=== PATIENT | female | born 1975 | race Hispanic/Latino ===

== ENCOUNTER 2017-03-19 01:15 | Emergency (ER) | payer OTHER, MEDICARE ==
[2017-03-19] MEDS ORDERED: LORAZEPAM 1 MG TABLET ONE (02:02)
== END 2017-03-19 02:33 | disposition home or self-care (01) ==
LOC: EDH 01:15
DX: F41.9 Anxiety disorder, unspecified (principal); E11.9 Type 2 diabetes mellitus without complications; E78.5 Hyperlipidemia, unspecified; I10 Essential (primary) hypertension; Z88.1 Allergy status to other antibiotic agents

== ENCOUNTER 2017-08-14 14:07 | Emergency (ER) | payer OTHER, MEDICARE | END 2017-08-14 15:32 | disposition home or self-care (01) | LOC: EDH 14:07 | DX: L03.317 Cellulitis of buttock (principal); E11.9 Type 2 diabetes mellitus without complications; Z98.84 Bariatric surgery status; Z88.1 Allergy status to other antibiotic agents ==

== ENCOUNTER 2018-02-20 18:52 | Emergency (ER) | payer OTHER, MEDICARE | END 2018-02-20 20:55 | disposition home or self-care (01) | LOC: EDH 18:52 | DX: J06.9 Acute upper respiratory infection, unspecified (principal); J32.9 Chronic sinusitis, unspecified; Z88.1 Allergy status to other antibiotic agents; Z90.49 Acquired absence of other specified parts of digestive tract; Z98.890 Other specified postprocedural states | CPT/HCPCS: 87804 ==

== ENCOUNTER 2018-05-02 17:02 | Emergency (ER) | payer OTHER, MEDICARE ==
[2018-05-02] MEDS ORDERED: IBUPROFEN 600 MG TABLET ONE (17:50)
== END 2018-05-02 17:56 | disposition home or self-care (01) ==
LOC: EDH 17:02
DX: H10.9 Unspecified conjunctivitis (principal); E11.9 Type 2 diabetes mellitus without complications; E78.5 Hyperlipidemia, unspecified; I10 Essential (primary) hypertension; Z90.49 Acquired absence of other specified parts of digestive tract; Z98.84 Bariatric surgery status; Z88.1 Allergy status to other antibiotic agents

== ENCOUNTER 2018-06-17 20:02 | Emergency (ER) | payer MEDICARE, OTHER ==
[2018-06-17 20:26] LABS: APPEARANCE,URINE Clear (CLEAR); BILIRUBIN,URINE Negative (NEGATIVE); COLOR,URINE Dark Yellow (YELLOW); GLUCOSE, URINE (UA) Negative (NEGATIVE); KETONES,URINE Negative (NEGATIVE); LEUKOCYTE ESTERASE ,URINE Small (NEGATIVE); NITRATE,URINE Positive (NEGATIVE); OCCULT BLOOD,URINE Negative (NEGATIVE); PROTEIN,URINE Trace mg/dL (NEGATIVE)
[2018-06-17 20:32] LABS: HCG,QUAL RESULT NEGATIVE (NEGATIVE)
[2018-06-17 20:40] LABS: BACTERIA,URINE Rare /HPF (None Seen); RBC,URINE 0-1 /HPF (0-1); SQUAMOUS EPITHELIAL CELL,UR Few /HPF (0-2)
[2018-06-17 20:46] LABS: CREATININE 0.7 mg/dL (0.5-1.5); POTASSIUM 4.4 mmol/L (3.5-5.1)
[2018-06-17 20:51] LABS: ALBUMIN 3.7 g/dL (3.5-5.0); BILIRUBIN,TOTAL 0.4 mg/dL (0.2-1.0); TOTAL PROTEIN, SERUM 8.2 g/dL (6.0-8.3)
[2018-06-17 21:07] LABS: EOSINOPHILS % (AUTO) 5.3 % (0.0-8.0); HEMATOCRIT 30.4 % (36-48); LYMPHOCYTES % (AUTO) 25.6 % (21.0-51.0); MEAN CORPUSCULAR HGB CONC 33.6 g/dL (32.0-36.0); MEAN CORPUSCULAR VOLUME 74.3 fL (79-99); MONOCYTES % (AUTO) 5.8 % (3.0-13.0); NEUTROPHILS % (AUTO) 62.3 % (40.0-77.0); PLATELET COUNT (AUTO) 171 K/uL (130-400); RED BLOOD CELL COUNT(AUTO) 4.09 MIL/uL (4.00-5.50); RED CELL DISTRIBUTION WIDTH 18.8 % (11.0-15.5); WHITE BLOOD COUNT (AUTO) 5.5 K/uL (4.8-10.8)
[2018-06-17] MEDS ORDERED: LIDOCAINE HCL 1% 20 ML VIAL ONE (21:56)
[2018-06-17] MEDS ORDERED: DiphenhydrAMINE HCL 50 MG/ML VIAL ONE (22:26)
[2018-06-17] MEDS ORDERED: MORPHINE SULFATE 4 MG/1ML SYG ONE (22:27)
[2018-06-17] MEDS ORDERED: ONDANSETRON HCL 4 MG/2 ML VIAL ONE (22:27)
[2018-06-18] MEDS ORDERED: HYDROCODONE/ACETAMINOPHEN 5/325 MG TAB ONE (00:34)
[2018-06-18] MEDS ORDERED: CEFTRIAXONE SODIUM 1 GM ONE (00:34)
[2018-06-18] MEDS ORDERED: SULFAMETHOX-TMP DS 800/160 TAB ONE (00:34)
== END 2018-06-18 01:10 | disposition home or self-care (01) ==
LOC: EDH 20:02
DX: L02.01 Cutaneous abscess of face (principal); N73.2 Unspecified parametritis and pelvic cellulitis; E11.9 Type 2 diabetes mellitus without complications; I10 Essential (primary) hypertension; E78.5 Hyperlipidemia, unspecified; Z88.1 Allergy status to other antibiotic agents; Z90.49 Acquired absence of other specified parts of digestive tract; Z98.890 Other specified postprocedural states
CPT/HCPCS: 10060; 36415; 80053; 81001; 81025; 82948; 85025; 96374; 96375; 99284; J0696; J1200; J2270; J2405

== ENCOUNTER 2018-07-24 17:16 | Emergency (ER) | payer OTHER ==
[2018-07-24] MEDS ORDERED: IBUPROFEN 600 MG TABLET ONE (17:28)
== END 2018-07-24 18:21 | disposition home or self-care (01) ==
LOC: EDH 17:16
DX: S63.681A Other sprain of right thumb, initial encounter (principal); E11.9 Type 2 diabetes mellitus without complications; E78.5 Hyperlipidemia, unspecified; I10 Essential (primary) hypertension; Z98.84 Bariatric surgery status; Z88.1 Allergy status to other antibiotic agents; X50.0XXA Overexertion from strenuous movement or load, initial encounter; Y93.89 Activity, other specified; Y92.89 Other specified places as the place of occurrence of the external cause; Y99.8 Other external cause status
CPT/HCPCS: 73130

== ENCOUNTER 2018-10-07 08:45 | Emergency (ER) | payer OTHER ==
[2018-10-07] MEDS ORDERED: IBUPROFEN 600 MG TABLET ONE (09:31)
== END 2018-10-07 09:40 | disposition home or self-care (01) ==
LOC: EDH 08:45
DX: S60.221A Contusion of right hand, initial encounter (principal); E11.9 Type 2 diabetes mellitus without complications; E78.5 Hyperlipidemia, unspecified; I10 Essential (primary) hypertension; Z98.890 Other specified postprocedural states; Z88.1 Allergy status to other antibiotic agents; W01.0XXA Fall on same level from slipping, tripping and stumbling without subsequent striking against object, initial encounter; Y93.01 Activity, walking, marching and hiking; Y92.098 Other place in other non-institutional residence as the place of occurrence of the external cause; Y99.8 Other external cause status
CPT/HCPCS: 29125; 73130

== ENCOUNTER 2019-03-03 17:17 | Emergency (ER) | payer OTHER ==
[2019-03-03] MEDS ORDERED: METOCLOPRAMIDE 10 MG/2 ML VIAL ONE (19:17)
[2019-03-03] MEDS ORDERED: DiphenhydrAMINE HCL 50 MG/ML VIAL ONE (19:17)
[2019-03-03] MEDS ORDERED: KETOROLAC TROMETHAMINE 15MG/ML ONE (19:17)
[2019-03-03] MEDS ORDERED: ONDANSETRON HCL 4 MG/2 ML VIAL ONE (19:17)
[2019-03-03] MEDS ORDERED: SODIUM CHLORIDE 0.9% 1000ML 1,000 ML IV ONE (19:21)
[2019-03-03] MEDS ORDERED: LORAZEPAM 2 MG/ML 1 ML VIAL ONE (19:47)
== END 2019-03-03 20:29 | disposition home or self-care (01) ==
LOC: EDH 17:17
DX: G43.909 Migraine, unspecified, not intractable, without status migrainosus (principal); R11.2 Nausea with vomiting, unspecified; E11.9 Type 2 diabetes mellitus without complications; I10 Essential (primary) hypertension; Z98.890 Other specified postprocedural states; Z88.1 Allergy status to other antibiotic agents; Z72.0 Tobacco use; Z98.84 Bariatric surgery status
CPT/HCPCS: 96361; 96374; 96375; 99284; J1200; J1885; J2060; J2405; J2765; J7030

== ENCOUNTER 2019-05-26 20:56 | Emergency (ER) | payer MEDICAID ==
[2019-05-26] MEDS ORDERED: ACETAMINOPHEN EXTRA STRENGTH 500 MG TABLET ONE (21:34)
== END 2019-05-26 21:56 | disposition home or self-care (01) ==
LOC: EDH 20:56
DX: H66.91 Otitis media, unspecified, right ear (principal); I10 Essential (primary) hypertension; E11.9 Type 2 diabetes mellitus without complications; Z88.1 Allergy status to other antibiotic agents; Z98.890 Other specified postprocedural states

== ENCOUNTER 2019-06-27 15:45 | Emergency (ER) | payer MEDICAID | END 2019-06-27 16:45 | disposition home or self-care (01) | LOC: EDH 15:45 | DX: L02.414 Cutaneous abscess of left upper limb (principal); I10 Essential (primary) hypertension; E11.9 Type 2 diabetes mellitus without complications; Z98.890 Other specified postprocedural states; Z90.49 Acquired absence of other specified parts of digestive tract; Z88.8 Allergy status to other drugs, medicaments and biological substances; Z88.0 Allergy status to penicillin | CPT/HCPCS: 10060 ==

== ENCOUNTER 2019-09-15 20:24 | Emergency (ER) | payer MEDICAID ==
[2019-09-15] MEDS ORDERED: METHYLPREDNISOLONE SOD SUCC 40MG/ML 1ML ONE (20:45)
[2019-09-15] MEDS ORDERED: DiphenhydrAMINE HCL 50 MG/ML VIAL ONE (20:46)
[2019-09-15] MEDS ORDERED: FAMOTIDINE/PF 20 MG/2 ML VIAL IV ONE (20:47)
[2019-09-15] MEDS ORDERED: KETOROLAC TROMETHAMINE 30MG/ML ONE (20:57)
[2019-09-15] MEDS ORDERED: CLINDAMYCIN 600 MG/D5% WATER 50 ML IV ONE (21:09)
== END 2019-09-15 22:13 | disposition home or self-care (01) ==
LOC: EDH 20:24
DX: R21 Rash and other nonspecific skin eruption (principal)
CPT/HCPCS: 96365; 96375 ×2; 99284; J1200; J1885; J2920; J3490 ×2; 96374

== ENCOUNTER 2019-09-17 13:33 | Inpatient (IN) | payer MEDICARE ==
[~2019-09-17] VITALS: Ht 157.5 cm; Wt 77.1 kg
[2019-09-17] MEDS ORDERED: ONDANSETRON HCL 4 MG/2 ML VIAL ONE ×2 (14:12→21:53)
[2019-09-17] MEDS ORDERED: MORPHINE SULFATE 4 MG/1ML SYG ONE ×3 (14:12→21:39)
[2019-09-17] MEDS ORDERED: IOHEXOL 350 MG/ML 100ML INFUS..BTL IV ONE (14:17)
[2019-09-17 14:19] LABS: BASOPHILS % (AUTO) 0.6 % (0.0-5.0); EOSINOPHILS % (AUTO) 1.6 % (0.0-8.0); HEMATOCRIT 31.5 % (36-48); LYMPHOCYTES % (AUTO) 18.9 % (21.0-51.0); MEAN CORPUSCULAR HEMOGLOBIN 28.2 pg (27.0-33.0); MEAN CORPUSCULAR VOLUME 85.4 fL (79-99); MONOCYTES % (AUTO) 6.2 % (3.0-13.0); NEUTROPHILS % (AUTO) 72.3 % (40.0-77.0); PLATELET COUNT (AUTO) 337 K/uL (130-400); RED BLOOD CELL COUNT(AUTO) 3.69 MIL/uL (4.00-5.50); RED CELL DISTRIBUTION WIDTH 13.1 % (11.0-15.5); WHITE BLOOD COUNT (AUTO) 7.1 K/uL (4.8-10.8)
[2019-09-17 14:25] LABS: APPEARANCE,URINE Clear (CLEAR); BILIRUBIN,URINE Negative (NEGATIVE); COLOR,URINE Yellow (YELLOW); GLUCOSE, URINE (UA) Negative (NEGATIVE); KETONES,URINE Negative (NEGATIVE); LEUKOCYTE ESTERASE ,URINE Trace (NEGATIVE); NITRATE,URINE Negative (NEGATIVE); OCCULT BLOOD,URINE Nonhemolyzed Trace (NEGATIVE); PH,URINE 6.5 (5.0-8.0); PROTEIN,URINE Negative (NEGATIVE)
[2019-09-17 14:35] LABS: HCG,QUAL RESULT NEGATIVE (NEGATIVE)
[2019-09-17 14:42] LABS: BACTERIA,URINE Rare /HPF (None Seen); SQUAMOUS EPITHELIAL CELL,UR Few /HPF (0-2)
[2019-09-17 14:47] LABS: INR 0.97 (0.85-1.15); PARTIAL THROMBOPLASTIN TIME 26.8 SEC (26.3-35.5); PROTHROMBIN TIME 10.5 SEC (9.6-11.6)
[2019-09-17 14:48] LABS: ALANINE AMINOTRANSFERASE 22 U/L (12-78); ASPARTATE AMINOTRANSFERASE 14 U/L (10-37); BILIRUBIN,TOTAL 0.3 mg/dL (0.2-1.0); CARBON DIOXIDE 28 mmol/L (21-32); CHLORIDE 103 mmol/L (101-111); CREATINE KINASE, TOTAL 56 U/L (21-232); CREATININE 0.7 mg/dL (0.5-1.5); GLOMERULAR FILTR. RATE CALC 98 mL/min (>60); GLUCOSE,RANDOM 93 mg/dL (70-105); MYOGLOBIN 23 ng/mL (10-92); POTASSIUM 4.1 mmol/L (3.5-5.1); SODIUM SERUM 139 mmol/L (136-145); TOTAL PROTEIN, SERUM 7.7 g/dL (6.0-8.3); TROPONIN I < 0.04 ng/mL (0.00-0.06); UREA NITROGEN, BLOOD 12 mg/dL (7-18)
[2019-09-17] MEDS ORDERED: ZOSYN 3.375GM+NS 50ML 50 ML IV ONE (16:36)
[2019-09-17] MEDS ORDERED: CLINDAMYCIN 600 MG/D5% WATER 50 ML IV ONE (16:36)
[2019-09-17] MEDS: SODIUM CHLORIDE 0.9% 1000ML 1,000 ML IV SCH (18:57)
[2019-09-17] MEDS: METRONIDAZOLE 500MG/100ML BAG 100 ML IV SCH (19:00)
[2019-09-17] MEDS ORDERED: ACETAMINOPHEN 325 MG TAB PO PRN ×2 (19:00)
[2019-09-17] MEDS: INSULIN HUMULIN R 100 UNIT/ML 3ML SQ SCH (21:00)
[2019-09-17] MEDS: ZOSYN 3.375GM+NS 50ML 50 ML IV SCH (21:00)
[2019-09-17] MEDS ORDERED: METRONIDAZOLE 500MG/100ML BAG 100 ML ONE (21:28)
[2019-09-17] MEDS ORDERED: SODIUM CHLORIDE 0.9% 1000ML 1,000 ML IV ONE (21:29)
[2019-09-17] MEDS ORDERED: HYDROMORPHONE HCL 0.5 MG/0.5 ML ML ONE (21:41)
[2019-09-18] MEDS ORDERED: ZOSYN 3.375GM+NS 50ML 50 ML IV ONE (00:16)
[2019-09-18] MEDS ORDERED: HYDROCODONE/ACETAMINOPHEN 5/325 MG TAB ONE (00:17)
[2019-09-18] MEDS: SODIUM CHLORIDE 0.9% 1000ML 1,000 ML IV SCH ×4 (01:37→21:37)
[2019-09-18 02:27] VITALS: BP 121/67
[2019-09-18] MEDS ORDERED: DEXTROSE 50%-WATER 50 ML DISP.SYRIN IV ONE (03:02)
[2019-09-18] MEDS ORDERED: DEXTROSE 50%-WATER 50 ML DISP.SYRIN IV PRN (03:15)
[2019-09-18] MEDS ORDERED: GLUCAGON 1MG KIT 1 MG ML IM PRN (03:15)
[2019-09-18] MEDS ORDERED: HYDROMORPHONE HCL 0.5 MG/0.5 ML ML ONE (03:15)
[2019-09-18] MEDS: METRONIDAZOLE 500MG/100ML BAG 100 ML IV SCH ×3 (03:19→20:18)
[2019-09-18] MEDS: ONDANSETRON HCL 4 MG/2 ML VIAL IV PRN ×2 (03:19→16:11)
[2019-09-18] MEDS ORDERED: ALPR0.5T8 PO (03:28)
[2019-09-18] MEDS ORDERED: GABA300C PO (03:28)
[2019-09-18] MEDS ORDERED: LISI-613 PO (03:30)
[2019-09-18] MEDS ORDERED: GLIP1TAB5 PO (03:33)
[2019-09-18] MEDS: ZOSYN 3.375GM+NS 50ML 50 ML IV SCH ×3 (06:24→20:18)
[2019-09-18] MEDS: INSULIN HUMULIN R 100 UNIT/ML 3ML SQ SCH ×4 (06:38→20:26)
[2019-09-18 07:49] LABS: HEMATOCRIT 28.4 % (36-48); MEAN CORPUSCULAR HEMOGLOBIN 28.2 pg (27.0-33.0); MEAN CORPUSCULAR HGB CONC 32.7 g/dL (32.0-36.0); MEAN CORPUSCULAR VOLUME 86.1 fL (79-99); RED BLOOD CELL COUNT(AUTO) 3.3 MIL/uL (4.00-5.50); RED CELL DISTRIBUTION WIDTH 13.2 % (11.0-15.5); WHITE BLOOD COUNT (AUTO) 5.5 K/uL (4.8-10.8)
[2019-09-18 08:00] VITALS: BP 115/77
[2019-09-18 08:01] LABS: CREATININE 0.7 mg/dL (0.5-1.5); POTASSIUM 4.1 mmol/L (3.5-5.1)
[2019-09-18 09:30] LABS: INR 0.98 (0.85-1.15); PROTHROMBIN TIME 10.6 SEC (9.6-11.6)
[2019-09-18] MEDS: HYDROMORPHONE 1 MG/1 ML AMP IV PRN ×2 (09:32→15:25)
[2019-09-18 12:00] VITALS: BP 123/85
--- NOTE | 2019-09-18 13:02 | NUR ---
DCP CM unable to meet w/pt, called spouse on facesheet, spoke to Tl Rolando , discussed dc plans. Pt is independent prior to admission, lives at home with spouse. Denies any other equipments/services. Uses [facility] for meds. Feels safe to go back home, still drives, spouse able to assist with transportation and needs as necessary. DC plan to home once stable. CM to cont to follow up. Addendum: 09/18/19 at 1304 by GLADYS SULLIVAN LVN CM Amended: Links added.
--- NOTE | 2019-09-18 13:39 | NUR ---
U/S GUIDED ASPIRATION OF SUPRAPUBIC ABDOMINAL WALL ABSCESS PROCEDURE PERFORMED BY DR. NAVA. PUNCTURE SITE SUPRAPUBIC REGION AND PATIENT TOLERATED PROCEDURE WELL. TOTAL REMOVED 80 MILLILITERS OF SEROSANGUINEOUS. END OF PROCEDURE AT 1350. CATHETER REMOVED AND DRESSING APPLIED. NO BLEEDING NOTED. REPORT GIVEN TO KELIN DIEHL AND PATIENT TRANSPORTED TO 315 VIA W/C. PT STABLE, AAO X 3 WITH NO C/O PAIN.
[2019-09-18 15:25] LABS: APPEARANCE BODY FLUID BLOODY (CLEAR); SPECIMENTYPE,BODY FLUID ASPIRATE
[2019-09-18 15:26] LABS: BODY FLUID WBC 15685 /cu. mm.; COLOR,BODY FLUID ORANGE (LT YELLOW); TOTAL VOLUME,BODY FLUID 80 mL
[2019-09-18 15:27] LABS: BODY FLUID RBC 9250 /cu. mm.
[2019-09-18 15:47] LABS: BF LYMPHOCYTE 1 %; BF MONOCYTE 2 %
[2019-09-18 16:00] VITALS: BP 129/83
[2019-09-18] MEDS ORDERED: HONEY 1 APPL/ML TUBE TP SCH (17:00)
[2019-09-18] MEDS: HYDROCODONE/ACETAMINOPHEN 5/325 MG TAB PO PRN (20:19)
[2019-09-18 20:32] VITALS: BP 96/69
[2019-09-19] VITALS (7 sets, daily range): BP systolic 106–156; BP diastolic 56–89
[2019-09-19] MEDS: SODIUM CHLORIDE 0.9% 1000ML 1,000 ML IV SCH ×3 (02:04→18:17)
[2019-09-19] MEDS: HYDROCODONE/ACETAMINOPHEN 5/325 MG TAB PO PRN (02:12)
--- NOTE | 2019-09-19 02:12 | NUR ---
PAIN Medicated with Hydrocodone for c/o abdominal pain.
--- NOTE | 2019-09-19 03:12 | NUR ---
MED EFFECT Pt resting quietly,respirations even and unlabored.
[2019-09-19] MEDS: METRONIDAZOLE 500MG/100ML BAG 100 ML IV SCH ×3 (03:45→18:57)
[2019-09-19] MEDS: ZOSYN 3.375GM+NS 50ML 50 ML IV SCH ×3 (05:12→20:51)
[2019-09-19] MEDS: HYDROMORPHONE 1 MG/1 ML AMP IV PRN ×2 (05:18→23:21)
[2019-09-19] MEDS: INSULIN HUMULIN R 100 UNIT/ML 3ML SQ SCH ×4 (05:26→20:57)
[2019-09-19] MEDS: HONEY 1 APPL/ML TUBE TP SCH (11:00)
--- NOTE | 2019-09-19 11:30 | NUR ---
DR CRUMP here new orders given
--- NOTE | 2019-09-19 12:30 | NUR ---
DR BUENROSTRO here to see pt ,assessed pt and treatment and instructed pt to follow up after discharge no new orders given
--- NOTE | 2019-09-19 13:35 | NUR ---
RD NOTIFICATION Pt admitted with abdominal cellulitis/abscess. Pt also had sores in mouth d/t reaction to medication. Pt interview via phone. Pt reports improved PO/appetite, mouth sores healing. Pt requests snacks TID. Tolerating 75gm CCD. Wants to avoid spicy foods. Recommend continue 75gm CCD. Diet preferences updated. RD to continue to monitor. Please notify as additional nutrition concerns arise. Thank you.
[2019-09-19] MEDS: ZYVOX 600 MG TAB PO SCH (15:41)
[2019-09-20] VITALS (7 sets, daily range): BP systolic 133–148; BP diastolic 62–93
[2019-09-20] MEDS: ZYVOX 600 MG TAB PO SCH ×2 (02:36→14:13)
[2019-09-20] MEDS: METRONIDAZOLE 500MG/100ML BAG 100 ML IV SCH ×3 (02:36→18:46)
[2019-09-20] MEDS: SODIUM CHLORIDE 0.9% 1000ML 1,000 ML IV SCH ×4 (02:37→22:24)
[2019-09-20] MEDS: ZOSYN 3.375GM+NS 50ML 50 ML IV SCH ×3 (04:43→22:24)
[2019-09-20] MEDS: INSULIN HUMULIN R 100 UNIT/ML 3ML SQ SCH ×4 (05:19→21:00)
[2019-09-20 05:35] LABS: BASOPHILS % (AUTO) 0.2 % (0.0-5.0); EOSINOPHILS % (AUTO) 3.8 % (0.0-8.0); HEMATOCRIT 29.3 % (36-48); LYMPHOCYTES % (AUTO) 25.9 % (21.0-51.0); MEAN CORPUSCULAR HEMOGLOBIN 28.2 pg (27.0-33.0); MEAN CORPUSCULAR HGB CONC 32.8 g/dL (32.0-36.0); MEAN CORPUSCULAR VOLUME 86.2 fL (79-99); NEUTROPHILS % (AUTO) 63.9 % (40.0-77.0); PLATELET COUNT (AUTO) 265 K/uL (130-400); RED CELL DISTRIBUTION WIDTH 12.8 % (11.0-15.5); WHITE BLOOD COUNT (AUTO) 5.3 K/uL (4.8-10.8)
[2019-09-20 05:48] LABS: ALBUMIN 2.5 g/dL (3.5-5.0); BILIRUBIN,TOTAL 0.3 mg/dL (0.2-1.0); CREATININE 0.6 mg/dL (0.5-1.5); POTASSIUM 3.5 mmol/L (3.5-5.1); TOTAL PROTEIN, SERUM 6.5 g/dL (6.0-8.3)
[2019-09-20 08:42] LABS: HEMOGLOBIN A1C 5.9 % (4.0-6.0)
[2019-09-20] MEDS: HONEY 1 APPL/ML TUBE TP SCH (11:13)
[2019-09-20] MEDS: HYDROCODONE/ACETAMINOPHEN 5/325 MG TAB PO PRN (22:36)
--- NOTE | 2019-09-20 23:12 | NUR ---
patient complained few minutes ago after administration of zosyn iv of itchiness redness more in the cheeks and slight swelling of lips. called information technology director for hospitalist You, he said he will orderordered solumedrol x 1 dose iv and benadryl PO prn q 6. vital signs are as follow 140/80 69 hr t 97.9 F, RR 17
[2019-09-20] MEDS ORDERED: DIPHENHYDRAMINE HCL 25 MG CAPSULE PO PRN (23:15)
[2019-09-20] MEDS ORDERED: METHYLPREDNISOLONE SOD SUCC 125MG/2ML VIAL IVP SCH (23:15)
[2019-09-20] MEDS ORDERED: METHYLPREDNISOLONE SOD SUCC 125MG/2ML VIAL ONE (23:19)
[2019-09-20] MEDS ORDERED: DIPHENHYDRAMINE HCL 25 MG CAPSULE ONE (23:19)
--- NOTE | 2019-09-20 23:30 | NUR ---
ADMINISTERED SOLUMEDROL 125 MG STAT AND BENADRYL PO. PT DENIED ANY DYPSNEA NOR CHEST PAIN. 0015 PT VERBALIZED ITCHINESS LESSENED, AND REDNESS SUBSIDED. CLOSE MONITORING. WALT POLANCO FOR NOW PER KLARISSA LIFE TEACHER CRYOGENICS ENGINEER FOR HOSPITALIST ORDER.
[2019-09-21] MEDS: ZYVOX 600 MG TAB PO SCH ×2 (03:23→14:29)
[2019-09-21 03:30] VITALS: BP 132/84
[2019-09-21] MEDS: SODIUM CHLORIDE 0.9% 1000ML 1,000 ML IV SCH (03:30)
[2019-09-21] MEDS: METRONIDAZOLE 500MG/100ML BAG 100 ML IV SCH ×2 (03:30→12:02)
[2019-09-21] MEDS: HYDROMORPHONE 1 MG/1 ML AMP IV PRN (04:17)
[2019-09-21 06:26] LABS: BASOPHILS % (AUTO) 0.1 % (0.0-5.0); HEMATOCRIT 32.4 % (36-48); MEAN CORPUSCULAR HEMOGLOBIN 27.7 pg (27.0-33.0); MEAN CORPUSCULAR VOLUME 83.9 fL (79-99); MONOCYTES % (AUTO) 0.5 % (3.0-13.0); PLATELET COUNT (AUTO) 299 K/uL (130-400); RED BLOOD CELL COUNT(AUTO) 3.86 MIL/uL (4.00-5.50); RED CELL DISTRIBUTION WIDTH 12.9 % (11.0-15.5); WHITE BLOOD COUNT (AUTO) 7.7 K/uL (4.8-10.8)
[2019-09-21 06:46] LABS: BILIRUBIN,TOTAL 0.3 mg/dL (0.2-1.0); CREATININE 0.7 mg/dL (0.5-1.5); TOTAL PROTEIN, SERUM 7.7 g/dL (6.0-8.3)
[2019-09-21] MEDS: INSULIN HUMULIN R 100 UNIT/ML 3ML SQ SCH ×2 (07:00→12:05)
--- NOTE | 2019-09-21 07:00 | NUR ---
Sent message to MD oWodard to call back regarding patient's result of body fluid culture, and zosyn reaction. pending for call back
[2019-09-21 08:00] VITALS: BP 125/98
[2019-09-21] MEDS: HONEY 1 APPL/ML TUBE TP SCH (09:00)
[2019-09-21 12:00] VITALS: BP 123/96
== END 2019-09-21 16:15 | disposition home or self-care (01) | DRG 862 ==
LOC: EDH 13:33 → EEVIPCON 13:33 → EDHIP 13:34 → 3CH 09-18 02:39
PROVIDERS: ADMIT Internal Medicine; ATTEND Internal Medicine
PROC: 0W9F3ZZ Drainage of Abdominal Wall, Percutaneous Approach (ICD-10-PCS; principal; 2019-09-18)
DX: T81.41XA Infection following a procedure, superficial incisional surgical site, initial encounter (principal); K65.1 Peritoneal abscess; L02.211 Cutaneous abscess of abdominal wall; L03.311 Cellulitis of abdominal wall; Y83.8 Other surgical procedures as the cause of abnormal reaction of the patient, or of later complication, without mention of misadventure at the time of the procedure; E11.9 Type 2 diabetes mellitus without complications; I10 Essential (primary) hypertension; N73.9 Female pelvic inflammatory disease, unspecified; B95.62 Methicillin resistant Staphylococcus aureus infection as the cause of diseases classified elsewhere; E66.01 Morbid (severe) obesity due to excess calories; M54.30 Sciatica, unspecified side; Z98.84 Bariatric surgery status; Z68.31 Body mass index [BMI] 31.0-31.9, adult; Z83.3 Family history of diabetes mellitus; Z82.49 Family history of ischemic heart disease and other diseases of the circulatory system; Z90.710 Acquired absence of both cervix and uterus; Z98.891 History of uterine scar from previous surgery; Z88.1 Allergy status to other antibiotic agents; Z86.14 Personal history of Methicillin resistant Staphylococcus aureus infection; Y92.89 Other specified places as the place of occurrence of the external cause
CPT/HCPCS: 10005; 36415; 71045; 74177; 76705; 76942; 80048; 80053; 81001; 81025; 82550; 82948; 83036; 83605; 83874; 84145; 84484; 85025; 85027; 85610; 85730; 86900; 86901; 87040; 87071; 87077; 87088; 87186; 87205; 89051; 93005; G0378; J1170; J1815; J2270; J2405; J2543; J2930; J3490; J7030; J7070; Q0163; Q9967

== ENCOUNTER 2020-02-11 17:10 | Emergency (ER) | payer MEDICARE ==
[~2020-02-11 17:10] MED LIST: ALPR0.5T8 PO; GABA300C PO; GLIP1TAB5 PO; LISI-613 PO
[2020-02-11] MEDS ORDERED: ALBUTEROL INHALER 90MCG/INH IH ONE (17:47)
[2020-02-11] MEDS ORDERED: ACETAMINOPHEN-CODEINE 300/30MG TAB ONE (17:47)
[2020-02-11 18:16] LABS: RAPID GROUP A STREP NEGATIVE (NEGATIVE)
== END 2020-02-11 19:00 | disposition home or self-care (01) ==
LOC: EDH 17:10
DX: B34.9 Viral infection, unspecified (principal); Z20.828 Contact with and (suspected) exposure to other viral communicable diseases; E11.9 Type 2 diabetes mellitus without complications; I10 Essential (primary) hypertension; Z88.1 Allergy status to other antibiotic agents; Z98.890 Other specified postprocedural states; Z90.710 Acquired absence of both cervix and uterus
CPT/HCPCS: 71045; 87426; 87804 ×2; 87880; 99284; U0003

== ENCOUNTER 2020-03-21 11:52 | Emergency (ER) | payer MEDICARE ==
[~2020-03-21 11:52] MED LIST changes: -LISI-613 PO; +LISI20TA24 PO
[2020-03-21 12:32] LABS: BASOPHILS % (AUTO) 0.7 % (0.0-5.0); EOSINOPHILS % (AUTO) 3.1 % (0.0-8.0); HEMATOCRIT 32.4 % (36-48); LYMPHOCYTES % (AUTO) 28.6 % (21.0-51.0); MEAN CORPUSCULAR HEMOGLOBIN 25.7 pg (27.0-33.0); MEAN CORPUSCULAR HGB CONC 32.1 g/dL (32.0-36.0); MEAN CORPUSCULAR VOLUME 80.2 fL (79-99); MONOCYTES % (AUTO) 8.5 % (3.0-13.0); NEUTROPHILS % (AUTO) 59.1 % (40.0-77.0); PLATELET COUNT (AUTO) 190 K/uL (130-400); RED BLOOD CELL COUNT(AUTO) 4.04 MIL/uL (4.00-5.50); RED CELL DISTRIBUTION WIDTH 16.1 % (11.0-15.5); WHITE BLOOD COUNT (AUTO) 4.1 K/uL (4.8-10.8)
[2020-03-21] MEDS ORDERED: KETOROLAC TROMETHAMINE 30MG/ML ONE (12:32)
[2020-03-21] MEDS ORDERED: CYCLOBENZAPRINE HCL 10 MG TABLET ONE (12:33)
[2020-03-21 12:41] LABS: CREATININE 0.8 mg/dL (0.5-1.5); POTASSIUM 3.7 mmol/L (3.5-5.1)
[2020-03-21 12:44] LABS: INR 1.02 (0.85-1.15); PROTHROMBIN TIME 11.1 SEC (9.6-11.6)
[2020-03-21 12:46] LABS: ALBUMIN 3.5 g/dL (3.5-5.0); BILIRUBIN,TOTAL 0.4 mg/dL (0.2-1.0); PARTIAL THROMBOPLASTIN TIME 24.1 SEC (26.3-35.5); TOTAL PROTEIN, SERUM 7.5 g/dL (6.0-8.3)
[2020-03-21 13:10] LABS: APPEARANCE,URINE Clear (CLEAR); BILIRUBIN,URINE Negative (NEGATIVE); COLOR,URINE Yellow (YELLOW); GLUCOSE, URINE (UA) 500 mg/dL (NEGATIVE); KETONES,URINE Trace mg/dL (NEGATIVE); LEUKOCYTE ESTERASE ,URINE Trace (NEGATIVE); NITRATE,URINE Negative (NEGATIVE); OCCULT BLOOD,URINE Negative (NEGATIVE); PROTEIN,URINE Negative (NEGATIVE); UROBILINOGEN,URINE 0.2 mg/dL (0.2-1.0)
[2020-03-21 13:13] LABS: HCG,QUAL RESULT NEGATIVE (NEGATIVE)
[2020-03-21 13:20] LABS: BACTERIA,URINE Few /HPF (None Seen); RBC,URINE 0-1 /HPF (0-1); WBC,URINE 0-1 /HPF (0-1)
[2020-03-21] MEDS ORDERED: IOHEXOL-350 75 ML VIAL IV ONE (13:40)
== END 2020-03-21 15:05 | disposition home or self-care (01) ==
LOC: EDH 11:52
DX: R10.9 Unspecified abdominal pain (principal); E66.9 Obesity, unspecified; E11.9 Type 2 diabetes mellitus without complications; I10 Essential (primary) hypertension; Z90.49 Acquired absence of other specified parts of digestive tract; Z98.890 Other specified postprocedural states; Z88.1 Allergy status to other antibiotic agents; Z88.2 Allergy status to sulfonamides
CPT/HCPCS: 36415; 74177; 80053; 81001; 81025; 83690; 85025; 85610; 85730; 96374; 99285; J1885; Q9967

== ENCOUNTER 2020-06-10 23:03 | Emergency (ER) | payer MEDICAID, MEDICARE ==
[2020-06-10] MEDS ORDERED: HYOSCYAMINE SULFATE 0.125 MG TAB.SUBL SL ONE (23:31)
[2020-06-10] MEDS ORDERED: ONDANSETRON ODT 4 MG TAB ONE (23:32)
== END 2020-06-10 23:43 | disposition home or self-care (01) ==
LOC: EDH 23:03
DX: R19.7 Diarrhea, unspecified (principal); R11.10 Vomiting, unspecified; I10 Essential (primary) hypertension; E11.9 Type 2 diabetes mellitus without complications; Z90.49 Acquired absence of other specified parts of digestive tract; Z98.890 Other specified postprocedural states; Z88.8 Allergy status to other drugs, medicaments and biological substances; Z88.2 Allergy status to sulfonamides
CPT/HCPCS: 96372

== ENCOUNTER 2020-08-06 22:32 | Emergency (ER) | payer MEDICAID, MEDICARE ==
[~2020-08-06] VITALS: Ht 157.5 cm; Wt 88.5 kg
[2020-08-06 23:01] LABS: APPEARANCE,URINE Clear (CLEAR); BILIRUBIN,URINE Negative (NEGATIVE); COLOR,URINE Yellow (YELLOW); GLUCOSE, URINE (UA) >=1000 mg/dL (NEGATIVE); KETONES,URINE Negative (NEGATIVE); LEUKOCYTE ESTERASE ,URINE Negative (NEGATIVE); NITRATE,URINE Negative (NEGATIVE); OCCULT BLOOD,URINE Negative (NEGATIVE); PH,URINE 5.5 (5.0-8.0); PROTEIN,URINE Negative (NEGATIVE); UROBILINOGEN,URINE 0.2 mg/dL (0.2-1.0)
[2020-08-06 23:17] LABS: BACTERIA,URINE Rare /HPF (None Seen); RBC,URINE 0-1 /HPF (0-1); SQUAMOUS EPITHELIAL CELL,UR 0-2 /HPF (0-2)
[2020-08-06] MEDS ORDERED: MORPHINE 4 MG SYG IV ONE (23:30)
[2020-08-06 23:38] VITALS: BP 149/90
[2020-08-07 01:23] LABS: BASOPHILS % (AUTO) 0.4 % (0.0-5.0); EOSINOPHILS % (AUTO) 1.9 % (0.0-8.0); HEMATOCRIT 30.1 % (36-48); LYMPHOCYTES % (AUTO) 26.5 % (21.0-51.0); MEAN CORPUSCULAR HEMOGLOBIN 24.3 pg (27.0-33.0); MEAN CORPUSCULAR HGB CONC 30.6 g/dL (32.0-36.0); MEAN CORPUSCULAR VOLUME 79.4 fL (79-99); MONOCYTES % (AUTO) 7.1 % (3.0-13.0); NEUTROPHILS % (AUTO) 63.9 % (40.0-77.0); PLATELET COUNT (AUTO) 200 K/uL (130-400); RED BLOOD CELL COUNT(AUTO) 3.79 MIL/uL (4.00-5.50); RED CELL DISTRIBUTION WIDTH 15.1 % (11.0-15.5); WHITE BLOOD COUNT (AUTO) 5.4 K/uL (4.8-10.8)
[2020-08-07 01:26] LABS: CREATININE 0.7 mg/dL (0.5-1.5); POTASSIUM 4.1 mmol/L (3.5-5.1)
[2020-08-07 01:31] LABS: ALBUMIN 3.4 g/dL (3.5-5.0); BILIRUBIN,TOTAL 0.2 mg/dL (0.2-1.0); TOTAL PROTEIN, SERUM 7.4 g/dL (6.0-8.3)
[2020-08-07] MEDS ORDERED: KETOROLAC 30MG VIAL (30MG/ML) IV ONE (04:00)
[2020-08-07] MEDS ORDERED: IBUP-2070 PO (06:01)
[2020-08-08 16:11] LABS: CHLAMYDIA DNA N.A.AMPLIFY Negative (Negative)
== END 2020-08-07 06:15 | disposition home or self-care (01) ==
LOC: EDH 22:32
DX: R10.30 Lower abdominal pain, unspecified (principal); E11.9 Type 2 diabetes mellitus without complications; I10 Essential (primary) hypertension; Z88.2 Allergy status to sulfonamides; Z88.1 Allergy status to other antibiotic agents; Z79.899 Other long term (current) drug therapy; Z79.84 Long term (current) use of oral hypoglycemic drugs; Z79.1 Long term (current) use of non-steroidal anti-inflammatories (NSAID); Z90.49 Acquired absence of other specified parts of digestive tract; Z98.84 Bariatric surgery status
CPT/HCPCS: 36415; 74176; 76830; 80053; 81001; 81025; 83690; 85025; 87210; 87486; 87797; 96374; 96375; 99285; J1885; J2270

== ENCOUNTER 2020-12-02 10:37 | Emergency (ER) | payer MEDICAID, MEDICARE ==
[~2020-12-02] VITALS: Ht 157.5 cm; Wt 88.5 kg
[~2020-12-02 10:37] MED LIST changes: +IBUP-2070 PO
[2020-12-02 11:01] VITALS: BP 153/76
[2020-12-02] MEDS ORDERED: CYCLOBENZAPRINE HCL 10 MG TABLET PO ONE (12:00)
[2020-12-02] MEDS ORDERED: KETOROLAC 60 MG VIAL (30MG/ML) IM ONE (12:00)
[2020-12-02 12:29] LABS: APPEARANCE,URINE Clear (CLEAR); BILIRUBIN,URINE Negative (NEGATIVE); COLOR,URINE Yellow (YELLOW); GLUCOSE, URINE (UA) Negative (NEGATIVE); KETONES,URINE Negative (NEGATIVE); LEUKOCYTE ESTERASE ,URINE Trace (NEGATIVE); NITRATE,URINE Negative (NEGATIVE); OCCULT BLOOD,URINE Negative (NEGATIVE); PROTEIN,URINE Negative (NEGATIVE)
[2020-12-02 12:32] LABS: HCG,QUAL RESULT NEGATIVE (NEGATIVE)
[2020-12-02] MEDS ORDERED: CYCL10TA16 PO (12:36)
[2020-12-02] MEDS ORDERED: ACET-2247 PO (12:36)
[2020-12-02 13:19] LABS: BACTERIA,URINE None Seen /HPF (None Seen); RBC,URINE 0-1 /HPF (0-1); SQUAMOUS EPITHELIAL CELL,UR 0-2 /HPF (0-2); WBC,URINE 0-1 /HPF (0-1)
== END 2020-12-02 12:56 | disposition home or self-care (01) ==
LOC: EDH 10:37
DX: M47.26 Other spondylosis with radiculopathy, lumbar region (principal); E11.9 Type 2 diabetes mellitus without complications; I10 Essential (primary) hypertension; E66.9 Obesity, unspecified; Z79.1 Long term (current) use of non-steroidal anti-inflammatories (NSAID); Z79.84 Long term (current) use of oral hypoglycemic drugs; Z79.899 Other long term (current) drug therapy; Z88.1 Allergy status to other antibiotic agents; Z88.2 Allergy status to sulfonamides; Z90.49 Acquired absence of other specified parts of digestive tract; Z98.84 Bariatric surgery status; Z68.35 Body mass index [BMI] 35.0-35.9, adult
CPT/HCPCS: 72100; 81001; 81025; 96372; 99284; J1885

== ENCOUNTER 2021-01-01 00:34 | Emergency (ER) | payer MEDICAID, MEDICARE ==
[~2021-01-01] VITALS: Ht 157.5 cm; Wt 108.9 kg
[~2021-01-01 00:34] MED LIST changes: +ACET-2247 PO; +CYCL10TA16 PO
[2021-01-01] MEDS ORDERED: KETOROLAC 15MG/ML VIAL (15MG/ML) IM ONE (02:00)
[2021-01-01] MEDS ORDERED: HYDROCODONE/ACETAMINOPHEN 5/325 MG TAB PO ONE (02:00)
[2021-01-01] MEDS ORDERED: MELO7.5T12 PO (02:21)
[2021-01-01] MEDS ORDERED: ACET1TAB25 PO (02:21)
[2021-01-01 02:55] VITALS: BP 136/64
== END 2021-01-01 02:53 | disposition home or self-care (01) ==
LOC: EDH 00:34
DX: M51.36 Other intervertebral disc degeneration, lumbar region (principal); M79.605 Pain in left leg; E11.9 Type 2 diabetes mellitus without complications; E66.9 Obesity, unspecified; Z88.2 Allergy status to sulfonamides; Z88.1 Allergy status to other antibiotic agents; Z79.1 Long term (current) use of non-steroidal anti-inflammatories (NSAID); Z79.84 Long term (current) use of oral hypoglycemic drugs; Z79.899 Other long term (current) drug therapy; Z90.49 Acquired absence of other specified parts of digestive tract; Z98.84 Bariatric surgery status; Z68.41 Body mass index [BMI] 40.0-44.9, adult
CPT/HCPCS: 96372; 99283; J1885

== ENCOUNTER 2021-03-07 18:56 | Emergency (ER) | payer MEDICAID ==
[~2021-03-07] VITALS: Ht 157.5 cm; Wt 84.4 kg
[~2021-03-07 18:56] MED LIST changes: +ACET1TAB25 PO; +MELO7.5T12 PO
[2021-03-07 19:50] LABS: INFLUENZA TYPE A NEGATIVE FOR TYPE A (NEG)
[2021-03-07 19:51] LABS: INFLUENZA TYPE B NEGATIVE FOR TYPE B (NEG)
[2021-03-07] MEDS ORDERED: D-ME1POW16 PO (21:12)
[2021-03-07] MEDS ORDERED: ACETAMINOPHEN WITH CODEINE 1 TAB TAB PO ONE (21:30)
[2021-03-07 22:13] VITALS: BP 140/75
[2021-03-07] MEDS ORDERED: NIRM1TAB PO (22:17)
== END 2021-03-07 22:40 | disposition home or self-care (01) ==
LOC: EDH 18:56
DX: J06.9 Acute upper respiratory infection, unspecified (principal); R05.9 Cough, unspecified; I10 Essential (primary) hypertension; E11.9 Type 2 diabetes mellitus without complications; Z20.822 Contact with and (suspected) exposure to COVID-19; Z90.49 Acquired absence of other specified parts of digestive tract; Z98.890 Other specified postprocedural states; Z88.2 Allergy status to sulfonamides; Z88.1 Allergy status to other antibiotic agents; Z88.8 Allergy status to other drugs, medicaments and biological substances; Z79.84 Long term (current) use of oral hypoglycemic drugs; Z79.899 Other long term (current) drug therapy
CPT/HCPCS: 87635; 87804 ×2; 99283; C9803

== ENCOUNTER 2021-04-11 07:44 | Emergency (ER) | payer MEDICAID ==
[~2021-04-11] VITALS: Ht 157.5 cm; Wt 77.1 kg
[~2021-04-11 07:44] MED LIST changes: +D-ME1POW16 PO; +NIRM1TAB PO
[2021-04-11 07:45] VITALS: BP 155/65
[2021-04-11] MEDS ORDERED: DEXAMETHASONE SOD PHOSPHATE 4 MG/ML 1ML VIAL ONE (08:23)
[2021-04-11] MEDS ORDERED: DEXAMETHASONE SOD PHOSPHATE 4 MG/ML 1ML VIAL IM SCH (08:30)
== END 2021-04-11 09:00 | disposition home or self-care (01) ==
LOC: EDH 07:44
DX: K13.79 Other lesions of oral mucosa (principal); J02.9 Acute pharyngitis, unspecified; I10 Essential (primary) hypertension; E11.9 Type 2 diabetes mellitus without complications; Z20.822 Contact with and (suspected) exposure to COVID-19; Z90.49 Acquired absence of other specified parts of digestive tract; Z98.890 Other specified postprocedural states; Z79.84 Long term (current) use of oral hypoglycemic drugs; Z79.899 Other long term (current) drug therapy; Z88.1 Allergy status to other antibiotic agents; Z88.2 Allergy status to sulfonamides
CPT/HCPCS: 87635; 87880; 96372; 99283; C9803; J1100

== ENCOUNTER 2021-06-07 14:28 | Emergency (ER) | payer MEDICAID, MEDICARE ==
[~2021-06-07] VITALS: Ht 157.5 cm; Wt 75.3 kg
[~2021-06-07 14:28] MED LIST changes: +ACET-2079 PO; -ACET1TAB25 PO
[2021-06-07] MEDS ORDERED: ORPHENADRINE CITRATE 30 MG/ML ML IM ONE (16:00)
[2021-06-07] MEDS ORDERED: KETOROLAC 30MG VIAL (30MG/ML) IM ONE (16:00)
[2021-06-07 16:08] VITALS: BP 152/98
[2021-06-07] MEDS ORDERED: NAPR500T6 PO (16:08)
[2021-06-07] MEDS ORDERED: CYCL10TA16 PO (16:08)
== END 2021-06-07 16:24 | disposition home or self-care (01) ==
LOC: EDH 14:28
DX: M54.41 Lumbago with sciatica, right side (principal); E11.9 Type 2 diabetes mellitus without complications; I10 Essential (primary) hypertension; M19.90 Unspecified osteoarthritis, unspecified site; E66.9 Obesity, unspecified; Z68.30 Body mass index [BMI] 30.0-30.9, adult; Z88.1 Allergy status to other antibiotic agents; Z88.2 Allergy status to sulfonamides; Z90.49 Acquired absence of other specified parts of digestive tract; Z98.84 Bariatric surgery status; Z79.1 Long term (current) use of non-steroidal anti-inflammatories (NSAID); Z79.899 Other long term (current) drug therapy
CPT/HCPCS: 96372 ×2; 99284; J1885; J2360

== ENCOUNTER 2021-07-13 21:10 | Emergency (ER) | payer MEDICAID ==
[~2021-07-13] VITALS: Ht 157.5 cm; Wt 78.9 kg
[~2021-07-13 21:10] MED LIST changes: +NAPR500T6 PO
[2021-07-13] MEDS ORDERED: CEPH500B PO (22:50)
[2021-07-13] MEDS ORDERED: NAPR-1180 PO (22:50)
[2021-07-13] MEDS ORDERED: CEPHALEXIN 500 MG CAPSULE PO ONE (23:00)
[2021-07-13] MEDS ORDERED: TETANUS/DIPHTHERIA TOXOID [ADULT] 0.5 ML VIAL IM ONE (23:00)
[2021-07-13] MEDS ORDERED: CYCLOBENZAPRINE HCL 10 MG TABLET PO ONE (23:00)
[2021-07-13] MEDS ORDERED: IBUPROFEN 800 MG TAB PO ONE (23:00)
[2021-07-13] MEDS ORDERED: NEOMY SULF/BACITRA/POLYMYXIN B 1 EACH PACKET TP ONE (23:02)
[2021-07-13 23:09] VITALS: BP 134/85
== END 2021-07-13 23:25 | disposition home or self-care (01) ==
LOC: EDH 21:10
DX: S70.02XA Contusion of left hip, initial encounter (principal); S80.02XA Contusion of left knee, initial encounter; S61.335A Puncture wound without foreign body of left ring finger with damage to nail, initial encounter; E11.9 Type 2 diabetes mellitus without complications; I10 Essential (primary) hypertension; Z90.49 Acquired absence of other specified parts of digestive tract; Z98.890 Other specified postprocedural states; Z88.2 Allergy status to sulfonamides; Z88.1 Allergy status to other antibiotic agents; Z79.899 Other long term (current) drug therapy; Z79.84 Long term (current) use of oral hypoglycemic drugs; W19.XXXA Unspecified fall, initial encounter; Y93.89 Activity, other specified; Y92.89 Other specified places as the place of occurrence of the external cause; Y99.8 Other external cause status
CPT/HCPCS: 11730; 73502; 73562; 90471; 90714

== ENCOUNTER 2021-07-25 13:19 | Emergency (ER) | payer MEDICAID ==
[~2021-07-25] VITALS: Ht 154.9 cm; Wt 63.5 kg
[~2021-07-25 13:19] MED LIST changes: +CEPH500B PO; +NAPR-1180 PO
[2021-07-25 13:21] VITALS: BP 103/53
[2021-07-25 14:24] LABS: APPEARANCE,URINE Cloudy (CLEAR); BILIRUBIN,URINE Negative (NEGATIVE); COLOR,URINE Yellow (YELLOW); GLUCOSE, URINE (UA) >=1000 mg/dL (NEGATIVE); KETONES,URINE Negative (NEGATIVE); LEUKOCYTE ESTERASE ,URINE Negative (NEGATIVE); NITRATE,URINE Negative (NEGATIVE); OCCULT BLOOD,URINE Negative (NEGATIVE); PROTEIN,URINE POS 1+ mg/dL (NEGATIVE); UROBILINOGEN,URINE 0.2 mg/dL (0.2-1.0)
[2021-07-25 14:25] LABS: EOSINOPHILS % (AUTO) 0.6 % (0.0-8.0); HEMATOCRIT 33.4 % (36-48); LYMPHOCYTES % (AUTO) 2.9 % (21.0-51.0); MEAN CORPUSCULAR HEMOGLOBIN 24.1 pg (27.0-33.0); MEAN CORPUSCULAR HGB CONC 30.5 g/dL (32.0-36.0); MEAN CORPUSCULAR VOLUME 78.8 fL (79-99); MONOCYTES % (AUTO) 6.4 % (3.0-13.0); NEUTROPHILS % (AUTO) 89.8 % (40.0-77.0); PLATELET COUNT (AUTO) 184 K/uL (130-400); RED BLOOD CELL COUNT(AUTO) 4.24 MIL/uL (4.00-5.50); RED CELL DISTRIBUTION WIDTH 15.9 % (11.0-15.5); WHITE BLOOD COUNT (AUTO) 6.9 K/uL (4.8-10.8)
[2021-07-25 14:36] LABS: CREATININE 0.8 mg/dL (0.5-1.5); POTASSIUM 3.8 mmol/L (3.5-5.1)
[2021-07-25 14:41] LABS: ALBUMIN 3.8 g/dL (3.5-5.0); BILIRUBIN,TOTAL 0.5 mg/dL (0.2-1.0); TOTAL PROTEIN, SERUM 7.7 g/dL (6.0-8.3)
[2021-07-25 14:46] LABS: BACTERIA,URINE Few /HPF (None Seen); MUCUS,URINE Few LPF (None Seen); SQUAMOUS EPITHELIAL CELL,UR Many /HPF (0-2)
[2021-07-25] MEDS ORDERED: DICY20TA2 PO (15:17)
[2021-07-25] MEDS ORDERED: ONDA4TAB10 PO (15:17)
== END 2021-07-25 15:43 | disposition home or self-care (01) ==
LOC: EDH 13:19
DX: A08.4 Viral intestinal infection, unspecified (principal); D64.9 Anemia, unspecified; Z20.822 Contact with and (suspected) exposure to COVID-19; E11.9 Type 2 diabetes mellitus without complications; I10 Essential (primary) hypertension; Z88.1 Allergy status to other antibiotic agents; Z88.2 Allergy status to sulfonamides; Z90.49 Acquired absence of other specified parts of digestive tract; Z98.84 Bariatric surgery status; Z79.1 Long term (current) use of non-steroidal anti-inflammatories (NSAID); Z79.899 Other long term (current) drug therapy
CPT/HCPCS: 36415; 71045; 80053; 81001; 85025; 87635; 87804 ×2; 99284; C9803

== ENCOUNTER 2021-09-01 19:56 | Emergency (ER) | payer MEDICAID ==
[~2021-09-01] VITALS: Ht 157.5 cm; Wt 79.8 kg
[~2021-09-01 19:56] MED LIST changes: +DICY20TA2 PO; +ONDA4TAB10 PO
[2021-09-01 19:58] VITALS: BP 146/85
[2021-09-01] MEDS ORDERED: PRED20TA3 PO (20:38)
[2021-09-01] MEDS ORDERED: DIPH25 PO (20:38)
[2021-09-01] MEDS ORDERED: DIPHENHYDRAMINE HCL 25 MG CAPSULE PO ONE (21:00)
== END 2021-09-01 20:45 | disposition home or self-care (01) ==
LOC: EDH 19:56
DX: L29.9 Pruritus, unspecified (principal); R21 Rash and other nonspecific skin eruption; E11.9 Type 2 diabetes mellitus without complications; M19.90 Unspecified osteoarthritis, unspecified site; Z88.1 Allergy status to other antibiotic agents; Z88.2 Allergy status to sulfonamides; Z90.49 Acquired absence of other specified parts of digestive tract; Z98.84 Bariatric surgery status; Z79.899 Other long term (current) drug therapy; Z79.1 Long term (current) use of non-steroidal anti-inflammatories (NSAID); E66.9 Obesity, unspecified; Z68.32 Body mass index [BMI] 32.0-32.9, adult
CPT/HCPCS: 99283; Q0163

== ENCOUNTER 2021-09-22 07:50 | Emergency (ER) | payer MEDICAID ==
[~2021-09-22] VITALS: Ht 157.5 cm; Wt 77.1 kg
[~2021-09-22 07:50] MED LIST changes: +DIPH25 PO; +PRED20TA3 PO
[2021-09-22] MEDS ORDERED: LINEZOLID 600 MG/ISO-OSM 300 ML IV SCH (08:30)
[2021-09-22 08:42] LABS: BASOPHILS % (AUTO) 0.5 % (0.0-5.0); EOSINOPHILS % (AUTO) 2.1 % (0.0-8.0); HEMATOCRIT 34.6 % (36-48); LYMPHOCYTES % (AUTO) 29.2 % (21.0-51.0); MEAN CORPUSCULAR HGB CONC 31.5 g/dL (32.0-36.0); MEAN CORPUSCULAR VOLUME 73.2 fL (79-99); MONOCYTES % (AUTO) 7.3 % (3.0-13.0); NEUTROPHILS % (AUTO) 60.7 % (40.0-77.0); PLATELET COUNT (AUTO) 222 K/uL (130-400); RED BLOOD CELL COUNT(AUTO) 4.73 MIL/uL (4.00-5.50); RED CELL DISTRIBUTION WIDTH 17.3 % (11.0-15.5); WHITE BLOOD COUNT (AUTO) 4.2 K/uL (4.8-10.8)
[2021-09-22 08:45] LABS: CREATININE 0.7 mg/dL (0.5-1.5); POTASSIUM 4.2 mmol/L (3.5-5.1)
[2021-09-22] MEDS ORDERED: KETOROLAC 30MG VIAL (30MG/ML) ONE (08:45)
[2021-09-22 08:50] LABS: ALBUMIN 3.7 g/dL (3.5-5.0); TOTAL PROTEIN, SERUM 8.1 g/dL (6.0-8.3)
[2021-09-22] MEDS ORDERED: KETOROLAC 15MG/ML VIAL (15MG/ML) IV ONE (09:00)
[2021-09-22] MEDS ORDERED: DOXY100T2 PO (11:55)
[2021-09-22] MEDS ORDERED: DOXYCYCLINE HYCLATE 100 MG TABLET PO SCH (12:00)
[2021-09-22 12:28] VITALS: BP 134/84
== END 2021-09-22 12:29 | disposition home or self-care (01) ==
LOC: EDH 07:50
DX: L03.115 Cellulitis of right lower limb (principal); E11.9 Type 2 diabetes mellitus without complications; M79.671 Pain in right foot; Z88.1 Allergy status to other antibiotic agents; Z88.2 Allergy status to sulfonamides; Z79.899 Other long term (current) drug therapy; Z79.84 Long term (current) use of oral hypoglycemic drugs; Z90.49 Acquired absence of other specified parts of digestive tract; Z98.890 Other specified postprocedural states
CPT/HCPCS: 99284; 96365; 93971; 96366; 96375; 80053; 85025; 87040 ×2; 83605; 36415; J1885; J3490; J2020

== ENCOUNTER 2022-10-09 19:02 | Emergency (ER) | payer MEDICAID ==
[~2022-10-09] VITALS: Ht 157.5 cm; Wt 77.1 kg
[~2022-10-09 19:02] MED LIST changes: +DIPH-1242 PO; -DIPH25 PO; +DOXY100T2 PO
[2022-10-09 19:04] VITALS: BP 136/91; PULSE 72; RESP 16
[2022-10-09] MEDS ORDERED: IBUPROFEN 600 MG TABLET PO ONE (21:30)
[2022-10-09] MEDS ORDERED: ONDANSETRON ODT 4MG TAB SL ONE (21:30)
[2022-10-09] MEDS ORDERED: DIAZEPAM 5 MG TABLET PO ONE (21:30)
[2022-10-09] MEDS ORDERED: PREDNISONE 20 MG TABLET PO ONE (21:30)
[2022-10-09] MEDS ORDERED: HYDROCODONE/ACETAMINOPHEN 5/325 MG TAB PO ONE (21:30)
== END 2022-10-09 23:32 | disposition home or self-care (01) ==
LOC: EDH 19:02
DX: S76.012A Strain of muscle, fascia and tendon of left hip, initial encounter (principal); S83.92XA Sprain of unspecified site of left knee, initial encounter; W01.10XA Fall on same level from slipping, tripping and stumbling with subsequent striking against unspecified object, initial encounter; Y93.01 Activity, walking, marching and hiking; Y92.89 Other specified places as the place of occurrence of the external cause; Y99.8 Other external cause status
CPT/HCPCS: 72170; 73562

== ENCOUNTER 2024-06-08 14:15 | Emergency (ER) | payer BC, MEDICAID ==
[~2024-06-08] VITALS: Ht 157.5 cm; Wt 86.2 kg
[~2024-06-08 14:15] MED LIST changes: +NAPR-1506 PO; -NAPR500T6 PO; +ONDA-243 PO; -ONDA4TAB10 PO
[2024-06-08] MEDS ORDERED: NAPR-1194 PO (14:22)
--- NOTE | 2024-06-08 14:22 | ERN ---
General Chief Complaint: FOOT INJURY/PAIN Stated Complaint: FOOT PAIN Time Seen by MD: 14:17 Source: patient History of Present Illness Initial Comments Patient is a 48-year-old female coming in to be evaluated for right foot pain. Patient states that the pain has been ongoing for one week. The pain is localized to the medial aspect of her arch. She states that the pain is exacerbated with movements. No trauma reported. Allergies: Coded Allergies: sulfamethoxazole (Unverified Allergy, Unknown, SHORTNESS OF BREATH, 09/18/19) and mucous membranes breakouts trimethoprim (Unverified Allergy, Unknown, SHORTNESS OF BREATH, 09/18/19) and mucous membranes breakouts vancomycin (Verified Allergy, Unknown, 09/18/19) Home Meds Active Scripts Doxycycline Hyclate (Doxycycline Hyclate) 100 Mg Tablet, 100 MG PO BID for 10 Days, #20 TAB 0 Refills Prov:KARY AGUIRRE MD 09/22/21 Diphenhydramine HCl (Benadryl) 25 Mg Cap, 25 MG PO TID PRN for ITCHING, #15 CAP Prov:FARZANEH ESCOBAR 09/01/21 Prednisone (Prednisone) 20 Mg Tablet, 1 TAB PO AD for 6 Days, #14 TAB 0 Refills TAKE 1 TAB BY MOUTH THREE TIMES PER DAY X3 DAYS, THEN TAKE 1 TAB BY MOUTH TWICE A DAY X2 DAYS, THEN TAKE 1 TAB BY MOUTH ONCE A DAY X1 DAY. Prov:FARZANEH ESCOBAR 09/01/21 Ondansetron (Ondansetron Odt) 4 Mg Tab.rapdis, 4 MG PO TID, #21 TAB Prov:SAKINA REDDING 07/25/21 Dicyclomine HCl (Bentyl) 20 Mg Tab, 20 MG PO QIDP, #28 TAB Prov:SAKINA REDDING 07/25/21 Naproxen (Naprosyn) 500 Mg Tablet, 500 MG PO BIDPC, #60 TAB Prov:SAKINA REDDING 07/13/21 Cephalexin Monohydrate (Keflex) 500 Mg Cap, 500 MG PO TID for 7 Days, #21 CAP Prov:SAKINA REDDING 07/13/21 Naproxen (Naproxen) 500 Mg Tablet.dr, 500 MG PO BIDPC, #15 TAB Prov:FARZANEH ESCOBAR 06/07/21 Cyclobenzaprine HCl (Flexeril) 10 Mg Tab, 10 MG PO TID PRN for MUSCLE SPASMS, #15 TAB Prov:FARZANEH ESCOBAR FINANCIAL ANALYST ACCOUNTANT 06/07/21 Nirmatrelvir/Ritonavir (Paxlovid Co-Pack (Eua)) 1 Each Tablet, 1 EACH PO BID for 5 Days, #10 TAB Prov:SAKINA REDDING 03/07/21 D-Methorphan/PE/Acetaminophen (Theraflu Ms Severe Cold Pckt) 1 Each Powd.pack, 1 EACH PO QIDP, #20 PACK Prov:SAKINA REDDING 03/07/21 Acetaminophen with Codeine (Acetaminophen-Cod #3 Tablet) 1 Each Tablet, 1 EACH PO TID for pain for 5 Days, #15 TAB 0 Refills Prov:SANDRA WOODS MD 01/01/21 Meloxicam (Mobic) 7.5 Mg Tablet, 7.5 MG PO DAILY, #14 TAB 0 Refills Prov:SANDRA WOODS MD 01/01/21 Cyclobenzaprine HCl (Flexeril) 10 Mg Tab, 10 MG PO BID, #40 TAB Prov:SAKINA REDDING 12/02/20 Acetaminophen (Tylenol) 325 Mg Tablet, 650 MG PO Q4H, #100 TAB Prov:SAKINA REDDING 12/02/20 Ibuprofen (Ibuprofen) 600 Mg Tablet, 600 MG PO Q8H PRN for pain for 7 Days, #21 TAB Prov:NAZ BRITT MD 08/07/20 Reported Medications Glipizide/Metformin HCl (Glipizide-Metformin 2.5-500 mg) 1 Each Tablet, 1 TAB PO BIDMEALS TAKES ONLY WHEN BLOOD SUGAR GREATER THAN 160. OTHERWISE DOES NOT USE. 09/18/19 Lisinopril (Lisinopril) 20 Mg Tablet, 20 MG PO DAILY 09/18/19 Gabapentin (Neurontin) 300 Mg Capsule, 300 MG PO TID, CAP 09/18/19 Alprazolam (Alprazolam) 0.5 Mg Tablet, 0.5 MG PO HS 09/18/19 Past Medical History Past Medical History: Diabetes-Type II, Hypertension Medical History Other: Obesity, MRSA Past Surgical History: Bariatric Surgery, Surgical History Other: ABD HERNIA, Family History Family History: Negative Social History Social History: Lives with family, Other ROS Dictation CONSTITUTIONAL: No chills, no fever, no weakness, no diaphoresis, no malaise. HEAD/FACE: No signs of trauma. EENT: No eye pain, no blurred vision, no tearing, no double vision, no ear pain, no ear discharge, no nose pain, no nasal congestion, no throat pain, no throat swelling, no mouth pain. RESPIRATORY: No cough, no orthopnea, no SOB, no stridor, no wheezing. CARDIOVASCULAR: No chest pain, no edema, no palpitations, no syncope. GASTROINTESTINAL/ABDOMINAL: No abdominal pain, no constipation, no diarrhea, no nausea, no vomiting. GENITOURINARY: No abnormal discharge, no dysuria, no frequent urination, no hematuria. No complaints of pain in the genitals. MUSCULOSKELETAL: No back pain, no gout, no joint pain, no joint swelling, muscle pain, no muscle stiffness, no neck pain. INTEGUMENTARY: No change in color, no change in hair/nails, no dryness, no lesion, no lumps, no rash. NEUROLOGICAL/PSYCH: No anxiety, not depressed, no emotional problem, no headache, no numbness, no pre-existing deficit, no history of seizures, no tremors, no weakness. HEMATOLOGIC/LYMPHATIC: Not anemic, no history of blood clots, no apparent bleeding, no bruising, glands not swollen. All Systems Negative, Except as Noted. Physical Exam Physical Exam Dictation VITAL SIGNS: Reviewed. GENERAL APPEARANCE: Alert, oriented x3, no acute distress, obese. HEAD AND FACE: Non-traumatic. EYES: PERRL, pink conjunctivas, eyelid no trauma, anterior chamber clear. EARS: Pinnas intact and no signs of trauma or erythema. Ear canals clear and no discharge. TMs no erythema. NOSE: No discharge, no bleeding. OROPHARYNX: Mouth normal, teeth no caries, tongue pink. Pharynx clear, no erythema. Tonsils no exudates, no abscesses noted. Mucous membrane moist. NECK: Supple, non-tender, no thyromegaly, no masses, no JVD, no bruits. BREAST: Deferred. CHEST: No tenderness, no crepitus, no paradoxical movement, no retractions. LUNGS: Clear, well-ventilated, symmetric, no rales, no wheezing, no rhonchi, no stridor, good breath sounds bilaterally. HEART: Regular rate, regular rhythm, no murmur, no gallops. VASCULAR: No peripheral edema. ABDOMEN: Soft, positive bowel sounds, nondistended, no guarding, nontender, no rebound, no masses no hepatomegaly, no splenomegaly, no Lehman's sign, no hernias. RECTAL: Deferred. GENITAL: Deferred. NEUROLOGICAL: Normal speech, gross motor function intact, gross sensory function intact. MUSCULOSKELETAL: Neck nontender, full range of motion, back nontender, full range of motion. EXTREMITIES: Nontender, full range of motion. Right foot medial arch pain on palpation SKIN: Color pink, dry, no turgor, no rash, no lacerations, no abrasions, no contusions. LYMPHATICS: Deferred. Results Laboratory and Microbiology Labs Reviewed?: Yes MDM MDM: Differential diagnosis: Right foot plantar fasciitis, foot strain, transverse arch pain Rationale: Tests considered and ordered secondary to shared decision making include: Previous outside records reviewed: Old ER visits. Risk of complication and/or morbidity or mortality of patient management: None Patient is a 48-year-old female coming in to be evaluated for right foot pain. On physical exam there is tenderness to the medial aspect and arch of her foot. Patient will be discharged with a diagnosis of plantar fasciitis. I did advised her appropriate follow up with PCP in 1-2 days. ED Course Orders Procedure Category Date Status Time ,Urine Test LAB 06/08/24 Transmitted 14:18 DX & DISP Disposition: Discharge Departure Impression: Primary Impression: Plantar fasciitis of right foot Condition: Stable Scripts Naproxen (Naproxen) 500 Mg Tablet 1 TAB PO BID for pain for 7 Days, #14 TAB 0 Refills Prov: LENNY JACKSON MD 06/08/24 Additional Instructions: FOLLOW-UP WITH PRIMARY CARE PROVIDER IN 1 TO 2 DAYS. TAKE MEDICATIONS DIRECTED HERE IN THE EMERGENCY ROOM. OKAY TO CONTINUE HOME MEDICATIONS UNLESS O THERWISE DISCUSSED DURING YOUR VISIT IN THE EMERGENCY ROOM TODAY. RETURN TO YOUR NEAREST EMERGENCY ROOM IF SYMPTOMS WORSEN OR IF THERE IS NO IMPROVEMENT. CALL 911 IF YOU NEED IMMEDIATE ASSISTANCE. TAKE TYLENOL [id number] NEEDED AND IF NO CONTRAINDICATIONS ARE PRESENT. INCREASE ORAL HYDRATION. A WOUND CULTURE OR URINE CULTURE WAS ORDERED HERE IN THE EMERGENCY ROOM DEPARTMENT PLEASE FOLLOW-UP WITH PRIMARY CARE PROVIDER AND ADVISE THEM TO GET REPEAT PORTS FROM OUR FACILITY. IF YOU HAD ANY JENIFER WRAP/SPLINTS THAT WERE APPLIED HERE, PLEASE DO NOT REMOVE THEM UNTIL YOU SEE YOUR PRIMARY CARE OR SPECIALTY. Referrals: Referrals: TERESITA DURAN MD (PCP) Time of Disposition: 14:21 LENNY JACKSON MD Jun 08, 2024 14:22
[2024-06-08 15:37] VITALS: BP 148/90; PULSE 81; RESP 18; TEMP 98.4; O2SAT 98
[2024-06-08] MEDS: TRIAMCINOLONE ACETONIDE 40 MG/ML 1ML VIAL IM ONE (16:14)
[2024-06-08] MEDS: ketOROlac 30MG VIAL (30MG/ML) IM ONE (16:15)
== END 2024-06-08 16:16 | disposition home or self-care (01) ==
LOC: EDH 14:15
DX: M72.2 Plantar fascial fibromatosis (principal); E11.9 Type 2 diabetes mellitus without complications; I10 Essential (primary) hypertension; E66.9 Obesity, unspecified; Z79.1 Long term (current) use of non-steroidal anti-inflammatories (NSAID); Z79.899 Other long term (current) drug therapy; Z88.1 Allergy status to other antibiotic agents; Z88.2 Allergy status to sulfonamides; Z68.34 Body mass index [BMI] 34.0-34.9, adult
CPT/HCPCS: 99284; 96372 ×2; J1885; J3301

== ENCOUNTER 2024-06-11 22:15 | Emergency (ER) | payer BC ==
[~2024-06-11] VITALS: Ht 157.5 cm; Wt 86.2 kg
[~2024-06-11 22:15] MED LIST changes: +NAPR-1194 PO
[2024-06-12] MEDS: HYDROcodone/APAP 5/325 1 TAB TABLET PO ONE (00:11)
--- NOTE | 2024-06-12 01:10 | ERN ---
General Chief Complaint: FOOT INJURY/PAIN Stated Complaint: RT HEEL PAIN Time Seen by MD: 22:18 Time Seen by Midlevel: 22:18 Source: patient History of Present Illness Initial Comments The patient is a 48-year-old female presenting to the emergency department with pain to her right heel. She has a foreign body sensation to her right heel. She was seen in our emergency department two days ago and diagnosed with plantar fasciitis but she returns with increased pain. Denies any injury. Allergies: Coded Allergies: sulfamethoxazole (Unverified Allergy, Unknown, SHORTNESS OF BREATH, 09/18/19) and mucous membranes breakouts trimethoprim (Unverified Allergy, Unknown, SHORTNESS OF BREATH, 09/18/19) and mucous membranes breakouts vancomycin (Verified Allergy, Unknown, 09/18/19) Home Meds Active Scripts Naproxen (Naproxen) 500 Mg Tablet, 1 TAB PO BID for pain for 7 Days, #14 TAB 0 Refills Prov:LENNY JACKSON MD 06/08/24 Doxycycline Hyclate (Doxycycline Hyclate) 100 Mg Tablet, 100 MG PO BID for 10 Days, #20 TAB 0 Refills Prov:KARY AGUIRRE MD 09/22/21 Diphenhydramine HCl (Benadryl) 25 Mg Cap, 25 MG PO TID PRN for ITCHING, #15 CAP Prov:FARZANEH ESCOBAR 09/01/21 Prednisone (Prednisone) 20 Mg Tablet, 1 TAB PO AD for 6 Days, #14 TAB 0 Refills TAKE 1 TAB BY MOUTH THREE TIMES PER DAY X3 DAYS, THEN TAKE 1 TAB BY MOUTH TWICE A DAY X2 DAYS, THEN TAKE 1 TAB BY MOUTH ONCE A DAY X1 DAY. Prov:FARZANEH ESCOBAR 09/01/21 Ondansetron (Ondansetron Odt) 4 Mg Tab.rapdis, 4 MG PO TID, #21 TAB Prov:SAKINA REDDING 07/25/21 Dicyclomine HCl (Bentyl) 20 Mg Tab, 20 MG PO QIDP, #28 TAB Prov:SAKINA REDDING 07/25/21 Naproxen (Naprosyn) 500 Mg Tablet, 500 MG PO BIDPC, #60 TAB Prov:SAKINA REDDING 07/13/21 Cephalexin Monohydrate (Keflex) 500 Mg Cap, 500 MG PO TID for 7 Days, #21 CAP Prov:SAKINA REDDING 07/13/21 Naproxen (Naproxen) 500 Mg Tablet.dr, 500 MG PO BIDPC, #15 TAB Prov:LUZFARZANEHP 06/07/21 Cyclobenzaprine HCl (Flexeril) 10 Mg Tab, 10 MG PO TID PRN for MUSCLE SPASMS, #15 TAB Prov:FARZANEH ESCOBARP 06/07/21 Nirmatrelvir/Ritonavir (Paxlovid Co-Pack (Eua)) 1 Each Tablet, 1 EACH PO BID for 5 Days, #10 TAB Prov:SAKINA REDDING 03/07/21 D-Methorphan/PE/Acetaminophen (Theraflu Ms Severe Cold Pckt) 1 Each Powd.pack, 1 EACH PO QIDP, #20 PACK Prov:SAKINA REDDING 03/07/21 Acetaminophen with Codeine (Acetaminophen-Cod #3 Tablet) 1 Each Tablet, 1 EACH PO TID for pain for 5 Days, #15 TAB 0 Refills Prov:SANDRA WOODS MD 01/01/21 Meloxicam (Mobic) 7.5 Mg Tablet, 7.5 MG PO DAILY, #14 TAB 0 Refills Prov:SANDRA WOODS MD 01/01/21 Cyclobenzaprine HCl (Flexeril) 10 Mg Tab, 10 MG PO BID, #40 TAB Prov:SAKINA REDDING 12/02/20 Acetaminophen (Tylenol) 325 Mg Tablet, 650 MG PO Q4H, #100 TAB Prov:SAKINA REDDING 12/02/20 Ibuprofen (Ibuprofen) 600 Mg Tablet, 600 MG PO Q8H PRN for pain for 7 Days, #21 TAB Prov:NAZ BRITT MD 08/07/20 Reported Medications Glipizide/Metformin HCl (Glipizide-Metformin 2.5-500 mg) 1 Each Tablet, 1 TAB PO BIDMEALS TAKES ONLY WHEN BLOOD SUGAR GREATER THAN 160. OTHERWISE DOES NOT USE. 09/18/19 Lisinopril (Lisinopril) 20 Mg Tablet, 20 MG PO DAILY 09/18/19 Gabapentin (Neurontin) 300 Mg Capsule, 300 MG PO TID, CAP 09/18/19 Alprazolam (Alprazolam) 0.5 Mg Tablet, 0.5 MG PO HS 09/18/19 Past Medical History Past Medical History: Diabetes-Type I, Diabetes-Type II, Hypertension Medical History Other: Obesity, MRSA Past Surgical History: None, Bariatric Surgery Surgical History Other: ABD HERNIA X 8 Family History Family History: Negative Social History Social History: Lives with family, Other ROS Dictation CONSTITUTIONAL: Negative except for HPI HEAD/FACE: Negative except for HPI EENT: Negative except for HPI RESPIRATORY: Negative except for HPI GASTROINTESTINAL/ABDOMINAL: Negative except for HPI GENITOURINARY: Negative except for HPI MUSCULOSKELETAL: Negative except for HPI INTEGUMENTARY: Negative except for HPI NEUROLOGICAL/PSYCH: Negative except for HPI HEMATOLOGIC/LYMPHATIC: Negative except for HPI All Systems Negative, Except as noted above. 13 point review of systems assessed and all negative except for above. Physical Exam Physical Exam Dictation PHYSICAL EXAM: GENERAL: alert,, awake oriented x 3 HEENT: EOMI, Sclera non icteric, moist mucosa NECK: Supple, no JVD, trachea midline LUNGS: Clear breath sounds bilaterally. No wheezes HEART: Regular rate and rhythm. Normal S1 and S2, without murmurs ABD: Abdomen soft, nontender. Bowel sounds present EXT: No clubbing or cyanosis, NEURO: Alert and oriented to person, follows commands MDM MDM: Differential diagnosis: Plantar fasciitis, foreign body, fracture, bone spur There are no social concerns with this patient. Prescription drug management Prescriptions will include: None Medical management and examination interpretation discussions were had by me with other qualified healthcare professionals as indicated for the patient's care. ED Course Orders Procedure Category Date Status Time Hydrocodone/Apap PHA 06/12/24 Complete 5/325 ([place] 5/325mg) 00:30 Foot Comp 3+Vws Rt RAD 06/12/24 Taken 00:01 Current Medications Medications (Trade) Dose Ordered Sig/Meaghan Route PRN Reason Start Time Stop Time Status Last Admin Dose Admin Acetaminophen/ Hydrocodone Bitart (NORco 5/325MG) 1 tab ONCE ONCE PO 06/12/24 00:30 06/12/24 00:31 DC 06/12/24 00:11 Vital Signs Date Time Temp Pulse Resp B/P (MAP) Pulse Ox O2 Delivery O2 Flow Rate FiO2 06/11/24 23:21 98.8 84 20 132/74 98 Room Air* 0 21 06/11/24 22:16 97.2 66 18 134/96 98 Room Air DX & DISP Disposition: Discharge Departure Impression: Primary Impression: Plantar fasciitis of right foot Condition: Stable Additional Instructions: Your right foot x-ray does not show any evidence of an acute fracture, foreign body, or any other acute abnormality. Your physical exam and symptoms are consistent with plantar fasciitis. Please make sure you rest, ice the area, you may take Tylenol and Motrin as needed. You may also use he was/arc support inserts. You will need to see your primary care doctor for possible weight engineer or integrated marketing specialist outpatient follow up. Referrals: ADRIANA KING MD (PCP) I have reviewed the case, and I agree with, Diagnosis and Plan I performed the substantive portion of the visit. I have reviewed and personally made and approve the management plan that is documented in the note by myself or the AMARJIT. I acknowledge for responsibility for the patient's management plan. ADRIANA FRANKS Jun 12, 2024 01:10
[2024-06-12 01:29] VITALS: BP 155/90; PULSE 59; RESP 16; TEMP 97.8; O2SAT 99
--- NOTE | 2024-06-12 11:16 | HMCIMG ---
FOOT COMP 3+VWS RT HISTORY: Foreign body COMPARISON: None TECHNIQUE: 3 images of right foot were obtained. FINDINGS: There is no acute displaced fracture or dislocation. No evidence of radiopaque foreign body is seen. Mild degenerative changes are seen. IMPRESSION: 1. Findings as described above.
== END 2024-06-12 01:30 | disposition home or self-care (01) ==
LOC: EDH 22:15
DX: M72.2 Plantar fascial fibromatosis (principal); E11.9 Type 2 diabetes mellitus without complications; E66.9 Obesity, unspecified; I10 Essential (primary) hypertension; Z79.1 Long term (current) use of non-steroidal anti-inflammatories (NSAID); Z79.899 Other long term (current) drug therapy; Z88.1 Allergy status to other antibiotic agents; Z88.2 Allergy status to sulfonamides; Z98.890 Other specified postprocedural states
CPT/HCPCS: 73630; 99283